=== PATIENT | male | born 1980 | race Caucasian/White ===

== ENCOUNTER 2019-08-29 20:23 | Inpatient (IN) | payer OTHER ==
[~2019-08-29] VITALS: Ht 162.6 cm; Wt 204.1 kg
[2019-08-29] MEDS ORDERED: NAPROXEN250 MG (20:51)
[2019-08-29] MEDS ORDERED: LISINOPRIL20 MG (20:52)
== END 2019-09-09 20:26 | disposition home or self-care (01) | DRG 603 ==
LOC: ER 20:23 → EDBD 20:41 → ER 20:41 → SURH 08-30 20:23 → MEDJ 09-01 17:05
PROVIDERS: ADMIT Internal Medicine
PROC: BW4GZZZ Ultrasonography of Pelvic Region (ICD-10-PCS; principal; 2019-09-01)
PROC: 3E0F7GC Introduction of Other Therapeutic Substance into Respiratory Tract, Via Natural or Artificial Opening (ICD-10-PCS; 2019-09-02)
PROC: 4A033R1 Measurement of Arterial Saturation, Peripheral, Percutaneous Approach (ICD-10-PCS; 2019-09-03)
PROC: 5A09457 Assistance with Respiratory Ventilation, 24-96 Consecutive Hours, Continuous Positive Airway Pressure (ICD-10-PCS; 2019-09-03)
PROC: 4A12X4Z Monitoring of Cardiac Electrical Activity, External Approach (ICD-10-PCS; 2019-09-03)
DX: L03.311 Cellulitis of abdominal wall (principal); Z99.11 Dependence on respirator [ventilator] status; E87.2 Acidosis; N49.2 Inflammatory disorders of scrotum; E66.01 Morbid (severe) obesity due to excess calories; G47.33 Obstructive sleep apnea (adult) (pediatric); I10 Essential (primary) hypertension; R31.0 Gross hematuria

== ENCOUNTER 2020-06-19 16:13 | Inpatient (IN) | payer OTHER ==
[~2020-06-19] VITALS: Ht 162.6 cm; Wt 272.2 kg
[~2020-06-19 16:13] MED LIST: LISINOPRIL20 MG; NAPROXEN250 MG
[2020-06-19] MEDS ORDERED: NAPROXEN500 MG (16:35)
[2020-06-19] MEDS ORDERED: ZYLOPRIM100 M1 (16:36)
[2020-06-19] MEDS ORDERED: ADALAT CC60 MG (16:36)
== END 2020-06-29 14:18 | disposition home or self-care (01) | DRG 603 ==
LOC: ER 16:13 → ICU-2 21:42 → ICU 06-22 03:57 → MEDI 06-26 17:36
PROVIDERS: ADMIT Internal Medicine; ATTEND Internal Medicine
PROC: 5A09457 Assistance with Respiratory Ventilation, 24-96 Consecutive Hours, Continuous Positive Airway Pressure (ICD-10-PCS; principal; 2020-06-19)
PROC: 3E0F7GC Introduction of Other Therapeutic Substance into Respiratory Tract, Via Natural or Artificial Opening (ICD-10-PCS; 2020-06-19)
PROC: 8E0ZXY6 Isolation (ICD-10-PCS; 2020-06-19)
PROC: 4A033R1 Measurement of Arterial Saturation, Peripheral, Percutaneous Approach (ICD-10-PCS; 2020-06-19)
PROC: BV44ZZZ Ultrasonography of Scrotum (ICD-10-PCS; 2020-06-20)
PROC: BW40ZZZ Ultrasonography of Abdomen (ICD-10-PCS; 2020-06-20)
PROC: BW4GZZZ Ultrasonography of Pelvic Region (ICD-10-PCS; 2020-06-20)
PROC: B24BZZZ Ultrasonography of Heart with Aorta (ICD-10-PCS; 2020-06-22)
DX: L03.311 Cellulitis of abdominal wall (principal); E87.2 Acidosis; E66.2 Morbid (severe) obesity with alveolar hypoventilation; J90 Pleural effusion, not elsewhere classified; B37.49 Other urogenital candidiasis; N45.1 Epididymitis; I10 Essential (primary) hypertension; R09.02 Hypoxemia; R31.0 Gross hematuria; Z20.828 Contact with and (suspected) exposure to other viral communicable diseases